=== PATIENT | female | born 1975 | race Caucasian/White ===

== ENCOUNTER 2020-03-25 20:41 | Emergency (ER) | payer BC ==
--- NOTE | 2020-03-25 21:48 | EDM.PDOC ---
<Snehal Garay - Last Filed: 03/25/20 22:02> ED HPI GENERAL MEDICAL PROBLEM - General Chief Complaint: Cardiovascular Problem Stated Complaint: HIGH BP NAUSA Time Seen by Provider: 03/25/20 21:40 Source of Information: Reports: Patient - History of Present Illness INITIAL COMMENTS - FREE TEXT/NARRATIVE: 44 yo female presents to emergency room with 20 hours fo dizziness and nausea. early this morning she woke and when she got out of bed to go to the bathroom she was very dizzy. she is mildly nauseated. She denies chest pain or SOB. Denies N/V/D. Vision is normal, but trouble focusing. afebrile. She has felt dizzy all day. - Related Data Allergies Allergy/AdvReac Type Severity Reaction Status Date / Time acetaminophen [From NyQuil] Allergy Hallucinati Verified 03/25/20 21:38 ons aspirin Allergy Nausea Verified 03/25/20 21:38 dextromethorphan Allergy Hallucinati Verified 03/25/20 21:38 [From NyQuil] ons doxylamine [From NyQuil] Allergy Hallucinati Verified 03/25/20 21:38 ons pseudoephedrine [From NyQuil] Allergy Hallucinati Verified 03/25/20 21:38 ons Home Meds: Home Meds NK [No Known Home Meds] 03/25/20 [History] Past Medical History HEENT History: Reports: Impaired Vision Gastrointestinal History: Reports: GERD Genitourinary History: Reports: UTI, Recurrent Musculoskeletal History: Reports: Neck Pain, Chronic Endocrine/Metabolic History: Reports: Obesity/BMI 30+ - Infectious Disease History Infectious Disease History: Reports: Chicken Pox, Mononucleosis - Past Surgical History HEENT Surgical History: Reports: Adenoidectomy, Tonsillectomy Social & Family History - Tobacco Use Smoking Status *Q: Never Smoker - Recreational Drug Use Recreational Drug Use: No ED ROS GENERAL - Review of Systems Review Of Systems: See Below Constitutional: Denies: Fever, Chills, Fatigue Respiratory: Denies: Shortness of Breath, Wheezing Cardiovascular: Reports: Blood Pressure Problem. Denies: Chest Pain GI/Abdominal: Denies: Abdominal Pain ED EXAM, GENERAL - Physical Exam Exam: See Below Exam Limited By: No Limitations General Appearance: Alert, WD/WN, No Apparent Distress Head: Atraumatic, Normocephalic Neck: Normal Inspection, Supple, Non-Tender, Full Range of Motion. No: Lymphadenopathy (R), Lymphadenopathy (L) Respiratory/Chest: No Respiratory Distress, Lungs Clear, Normal Breath Sounds. No: Crackles, Rhonchi, Wheezing Cardiovascular: Regular Rate, Rhythm, No Murmur GI/Abdominal: Soft, Non-Tender, No Distention Neurological: Alert, Oriented, CN II-XII Intact, Normal Cognition Psychiatric: Normal Affect, Normal Mood Skin Exam: Warm, Dry, Intact Departure - Departure Disposition: Home, Self-Care 01 Clinical Impression: Vertigo Urinary tract infection Qualifiers: Urinary tract infection type: acute cystitis Hematuria presence: with hematuria Qualified Code(s): N30.01 - Acute cystitis with hematuria Instructions: Urinary Tract Infection, Adult, [id number], Dizziness, Adcw-ve-Yves Referrals: PCP,None [Primary Care Provider] - Forms: ED Department Discharge Additional Instructions: Take 5 days of oral Septra. Avoid rapid movements of your head. Try to stay well-hydrated. Sepsis Event Note (ED) - Evaluation Sepsis Screening Result: No Definite Risk <Philipp Alfred - Last Filed: 03/26/20 00:08> Course - Vital Signs Text/Narrative:: The patient's urinalysis is questionably positive for urinary tract infection. It shows presence of red cells white cells and bacteria. Patient is allegedly just finishing her menses. I have ordered urine culture. In the meantime as long as she is receiving IV fluid I am going to treat her with a single dose of IV Rocephin and 5 days of outpatient antibiotic. She reiterates an adverse reaction to NyQuil and does not want to try antevert. Last Recorded V/S: Last Vital Signs Temp 36.9 C 03/25/20 21:45 Pulse 69 03/25/20 22:42 Resp 18 03/25/20 22:42 BP 135/89 03/25/20 22:42 Pulse Ox 98 03/25/20 22:42 - Orders/Labs/Meds Orders: Active Orders 24 hr Category Date Time Status CULTURE URINE [RM] Stat Lab 03/25/20 23:53 Ordered Sodium Chloride 0.9% [Normal Saline] 1,000 ml Med 03/25/20 22:00 Active IV ASDIRECTED cefTRIAXone [Rocephin] 1 gm Med 03/25/20 23:53 Active Sodium Chloride 0.9% [Normal Saline] 50 ml IV ONETIME Medication Orders Sodium Chloride (Normal Saline) 1,000 mls @ 500 mls/hr IV ASDIRECTED MARIELLA Last Admin: 03/25/20 22:29 Dose: 500 mls/hr Documented by: MERRICK Ceftriaxone Sodium 1 gm/ (Sodium Chloride) 50 mls @ 100 mls/hr IV ONETIME ONE Stop: 03/26/20 00:22 Last Admin: 03/25/20 23:58 Dose: 100 mls/hr Documented by: MERRICK Labs: Laboratory Tests 03/25/20 03/25/20 03/25/20 Range/Units 22:20 22:20 23:22 WBC 9.3 (4.5-11.0) K/uL RBC 4.93 (3.30-5.50) M/uL Hgb 13.8 (12.0-15.0) g/dL Hct 41.9 (36.0-48.0) % MCV 85 (80-98) fL MCH 28 (27-31) pg MCHC 33 (32-36) % Plt Count 370 (150-400) K/uL Neut % (Auto) 59 (36-66) % Lymph % (Auto) 31 (24-44) % [place] % (Auto) 8 H (2-6) % Eos % (Auto) 1 L (2-4) % Baso % (Auto) 1 (0-1) % Sodium 141 (140-148) mmol/L Potassium 3.8 (3.6-5.2) mmol/L Chloride 104 (100-108) mmol/L Carbon Dioxide 25 (21-32) mmol/L Anion Gap 11.9 (5.0-14.0) mmol/L BUN 14 (7-18) mg/dL Creatinine 0.9 (0.6-1.0) mg/dL Est Cr Clr Drug Dosing 69.60 mL/min Estimated GFR (MDRD) > 60 (>60) Glucose 95 (74-106) mg/dL Calcium 9.0 (8.5-10.1) mg/dL Total Bilirubin 0.6 (0.2-1.0) mg/dL AST 18 (15-37) U/L ALT 15 (12-78) U/L Alkaline Phosphatase 67 (46-116) U/L Total Protein 7.7 (6.4-8.2) g/dL Albumin 3.7 (3.4-5.0) g/dL Globulin 4.0 H (2.3-3.5) g/dL Albumin/Globulin Ratio 0.9 L (1.2-2.2) Urine Color Yellow (YELLOW) Urine Appearance Clear (CLEAR) Urine pH 7.0 (5.0-8.0) Ur Specific [place] 1.025 (1.008-1.030) Urine Protein Negative (NEGATIVE) mg/dL Urine Glucose (UA) Negative (NEGATIVE) mg/dL Urine Ketones Negative (NEGATIVE) mg/dL Urine Occult Blood Moderate H (NEGATIVE) Urine Nitrite Negative (NEGATIVE) Urine Bilirubin Negative (NEGATIVE) Urine Urobilinogen 0.2 (0.2-1.0) EU/dL Ur Leukocyte Esterase Negative (NEGATIVE) Urine RBC 10-20 H (0-5) Urine WBC 0-5 (0-5) Ur Epithelial Cells Few Amorphous Sediment Many Urine Bacteria Few Urine Mucus Few Meds: Medications Generic Name Dose Route Start Last Admin Trade Name Fabián PRN Reason Stop Dose Admin Sodium Chloride 1,000 mls @ 500 mls/hr 03/25/20 22:00 03/25/20 22:29 Normal Saline IV 500 mls/hr ASDIRECTED MARIELLA Administration Ceftriaxone Sodium 1 gm/ 50 mls @ 100 mls/hr 03/25/20 23:53 03/25/20 23:58 Sodium Chloride IV 03/26/20 00:22 100 mls/hr ONETIME ONE Administration Discontinued Medications Generic Name Dose Route Start Last Admin Trade Name Fabián PRN Reason Stop Dose Admin Ketorolac Tromethamine 30 mg 03/25/20 21:58 03/25/20 22:35 Toradol IVPUSH 03/25/20 21:59 30 mg ONETIME ONE Administration Metoclopramide HCl 5 mg 03/25/20 21:57 03/25/20 22:35 Reglan IVPUSH 03/25/20 21:58 5 mg ONETIME ONE Administration Departure - Departure Time of Disposition: 00:07 Sepsis Event Note (ED) - Focused Exam Vital Signs: Vital Signs Temp Pulse Resp BP Pulse Ox 03/25/20 22:42 69 18 135/89 98 03/25/20 21:45 36.9 C 65 17 150/86 H 100 03/25/20 21:40 36.9 C 65 17 150/86 H 100 - My Orders Last 24 Hours: My Active Orders 03/25/20 23:53 CULTURE URINE [RM] Stat cefTRIAXone [Rocephin] 1 gm Sodium Chloride 0.9% [Normal Saline] 50 ml IV ONETIME - Assessment/Plan Last 24 Hours: My Active Orders 03/25/20 23:53 CULTURE URINE [RM] Stat cefTRIAXone [Rocephin] 1 gm Sodium Chloride 0.9% [Normal Saline] 50 ml IV ONETIME
[2020-03-25] MEDS ORDERED: Metoclopramide 10 MG/2 ML SDV IVPUSH ONE (21:57)
[2020-03-25] MEDS ORDERED: Ketorolac 30 MG/ML SDV IVPUSH ONE (21:58)
[2020-03-25] MEDS ORDERED: Sodium Chloride 0.9% 1,000 ML IV SCH (22:00)
[2020-03-25] MEDS ORDERED: cefTRIAXone 1 GM in Sodium Chloride 0.9% 50 ML IV ONE (23:53)
== END 2020-03-26 00:50 | disposition home or self-care (01) ==
LOC: JP.ED 20:41
DX: N30.01 Acute cystitis with hematuria (principal); R42 Dizziness and giddiness; E66.9 Obesity, unspecified; Z90.49 Acquired absence of other specified parts of digestive tract; Z98.890 Other specified postprocedural states; Z68.41 Body mass index [BMI] 40.0-44.9, adult; Z88.6 Allergy status to analgesic agent; Z88.8 Allergy status to other drugs, medicaments and biological substances
CPT/HCPCS: 36415; 80053; 81001; 85025; 87086; 96361; 96365; 96375; 99284; J0696; J1885; J2765; J7030; J7050